=== PATIENT | female | born 1955 | race Caucasian/White ===

== ENCOUNTER 2021-11-01 13:18 | Outpatient (CLI) | payer MEDICARE, BC ==
[2021-11-01] VITALS (18 sets, daily range): BP systolic 102–142; BP diastolic 55–83
== END 2021-11-01 23:59 | disposition home or self-care (01) ==
LOC: CARD DIAG 13:18
PROVIDERS: ATTEND Internal Medicine Interventional Cardiology
DX: R55 Syncope and collapse (principal)
CPT/HCPCS: 93660